=== PATIENT | male | born 1955 | race Caucasian/White ===

== ENCOUNTER → 2025-03-07 10:47 | Outpatient (CLI) | payer MEDICARE, SELFPAY ==
--- NOTE | 2025-03-07 10:52 | DI.CT.S_ITS ---
PROCEDURE: CT KIDNEY URETER BLADDER (KUB) INDICATIONS: 69 y/o M w/ 8mm distal left ureterolith, eval for passage TECHNIQUE: After the administration of oral contrast, 5 mm thick sections acquired from the diaphragms to the symphysis. 5 mm coronal and sagittal reformats were performed. For radiation dose reduction, the following was used: automated exposure control, adjustment of mA and/or kV according to patient size. COMPARISON: Outside Facility, CT, CT ABDOMEN PELVIS W CON, 01/17/2025, 11:50. FINDINGS: Image quality: Diagnostic. Lower Chest: No significant findings. ABDOMEN: Liver: No contour-deforming mass. Gallbladder: Cholelithiasis again seen. Biliary ducts: No biliary dilation. Pancreas: No ductal dilation. Spleen: Size is within normal limits. Adrenal Glands: No adrenal nodules. Kidneys and Ureters: No hydronephrosis. No contour-deforming mass. There is again seen a 8 mm stone in the most distal portion of the left ureter, attenuation values of 1180 Hounsfield units. Stomach and Bowel: Normal colonic caliber, without significant wall thickening. Peritoneum: No abnormal intraperitoneal fluid. No free air. Ventral Wall: No significant hernia. Abdominal Nodes: No retroperitoneal or mesenteric adenopathy by size criteria. Vessels: Aorta and inferior vena cava are normal in size. PELVIS: Pelvic Organs: Unremarkable. Bladder: Unremarkable. Pelvic Nodes: No enlarged lymph nodes. Miscellaneous: No inguinal hernias are seen. Bones: No aggressive osseous abnormality. IMPRESSION: 1. Stable position of the 8 mm stone in the very distal portion of the left ureter, no hydronephrosis seen at this time. 2. No new focal lesion seen. Dictated by: Mono Ruiz M.D. on 03/07/2025 at 15:16 Approved by: Mono Ruiz M.D. on 03/07/2025 at 15:20
== END ==
PROVIDERS: Referring Provider Urology; Visit Provider Urology
DX: N20.1 Calculus of ureter (principal)
CPT/HCPCS: 74176; 99213

== ENCOUNTER 2025-04-13 08:03 | Day surgery (SDC) | payer MEDICARE, SELFPAY ==
[2025-04-05 15:03] VITALS: BMI 28.5
[2025-04-13 08:22] VITALS: BP 174/89; PULSE 82; RESP 16; TEMP 36.5; O2SAT 97; BMI 28.5
[2025-04-13] MEDS: LACTATED RINGERS 1,000 ML 42 ML IV (08:39)
--- NOTE | 2025-04-13 08:44 | PM.HP.IH.1 ---
History of Present Illness History of Present Illness Date Patient Seen: 04/13/25 Time Patient Seen: 08:44 Chief complaint: Cysto/Ureteroscopy/Laser Lithotripsy Narrative: 69 y/o M referred to Urology clinic to discuss management of his newly diagnosed 8mm distal left ureterolith in early March of 2025. Briefly, he does not have a prior history of kidney stones. He developed severe left flank pain with associated nausea and vomiting in mid January of 2025 and presented to [facility] in [place], [place]. This evaluation was notable for a WBC of 11.9, sCr of 1.0, an unremarkable UA and a CT Abd/Pel that demonstrated an 8mm distal left ureterolith with resultant upstream moderate left hydroureteronephrosis and a delayed left nephrogram (do not have access to these images, no report of other uroliths though). He has not had any pain in the interim. He opted for medical expulsion therapy in leiu of surgical management. He had a repeat CT KUB in March of 2025 that was notable for persistence of the aforementioned distal left ureterolith, therefore, he returns today for management via a cystoscopy, left ureteroscopy, laser lithotripsy and left ureteral stent placement. [facility] Medical History Hx of renal calculi Hx of gout Surgical History Hx of circumcision Hx of vasectomy Family History Father Diabetes mellitus Hyperlipidemia Hypertension Other Cancer Social History marital status: household members: significant other Smoking Status: Never smoker alcohol intake: current caffeine: Yes Type(s) of exercise: walking Meds Home Medications and Allergies Home Medications ?Medication ?Instructions ?Recorded ?Confirmed ?Type colchicine 0.6 mg capsule 0.6 mg PO DAILY 01/30/25 04/13/25 History Allergies Allergy/AdvReac Type Severity Reaction Status Date / Time codeine Allergy Verified 04/13/25 08:18 Review of Systems Review of Systems Narrative: CONSTITUTIONAL: Denies weight loss, fevers, chills. HEENT: Denies change in vision, hearing. RESP: Denies SOB, cough. CV: Denies palpations, CP. GI: Denies abdominal pain, nausea, vomiting, diarrhea. : Denies dysuria, hematuria, inability to void. MSK: Denies myalgia, joint pain. SKIN: Denies rash, pruritus. NEURO: Denies headache, syncope. PSYCH: Denies recent change in mood, anxiety, depression. Exam Vital Signs (past 8 hours): - 04/13/25 08:22 Temperature 97.7 F Pulse Rate 82 Respiratory Rate 16 Blood Pressure 174/89 H Pulse Oximetry 97 Narrative Exam Narrative: GEN: Alert and oriented X3. No acute distress. Well-nourished. EYES: PERRLA, EOMI. HENT: Moist mucus membranes, no scleral icterus, normal neck ROM. RESP: Unlabored breathing, equal rise and fall of chest bilaterally, no cyanosis appreciated. CV: No peripheral edema, unremarkable heart rate. ABD: Soft, non-tender, non-distended, no palpable masses. EXT: No edema, clubbing or cyanosis. SKIN: No rashes or lesions. NEURO: No focal neurologic deficits, CN II-XII grossly intact. PSYCH: Cooperative, appropriate mood and affect. Assessment & Plan Assessment and plan (1) Left ureteral calculus: Status: Acute Plan: 69 y/o M w/ an 8mm distal left ureterolith w/ resultant upstream moderate hydroureteronephrosis diagnosed in mid January of 2025. Discussed treatment options to include continued medical expulsion therapy (not recommended as his stone has been present for several months at this point) vs cystoscopy, left ureteroscopy, laser lithotripsy with left ureteral stent placement. Discussed risks of the procedure to include pain, bleeding, infection, injury to urethra/bladder/ureter, inability to access the ureter requiring discussion with Interventional Radiology regarding a possible ureteral stent placement in an antegrade fashion vs a possible nephroureteral stent and/or percutaneous nephrostomy tube, urinary tract infection, inability to remove all of the stone in one setting, need for emergent open repair of bladder and/or ureter, need for multiple ureteroscopic interventions necessary to render the patient stone free. Informed consent was obtained this morning. Time-Based Coding :: [TOTAL MINUTES] spent with patient and on the chart (including review of chart, obtaining history, exam, reviewing outside data, placing orders, documenting exam and treatment plan, and counseling patient) on [DATE]. [employer] Document charge(s): Yes Charge Codes Inpatient/observation care including admit and discharge same day: [id number]
[2025-04-13] MEDS: levoFLOXacin 500 MG/100 ML PIGGYBACK 100 MG IV (09:15)
[2025-04-13] MEDS: ACETAMINOPHEN IV 1,000 MG/100 ML VIAL 400 MG IV (09:16)
--- NOTE | 2025-04-13 09:26 | SUR.OPER ---
Lithotomy on padded OR bed, head on pillow, LEFT ARM secured on padded arm board at <90 degrees abduction. RIGHT ARM PADDED AND TUCKED. Legs secured in padded yellow fins stirrups.
[2025-04-13 10:05] VITALS: BP 135/92; PULSE 74; RESP 16; TEMP 36.2; O2SAT 98
--- NOTE | 2025-04-13 10:06 | SUR.OPER ---
QUANTA LASER: 272UM; LASING TIME 4SEC; TOTAL EMITTED JOULES 3.06 KJ; AVERAGE POWER 12.5W
[2025-04-13 10:10] VITALS: BP 165/83; PULSE 64; RESP 13; O2SAT 97
[2025-04-13 10:15] VITALS: BP 153/74; PULSE 65; RESP 15; O2SAT 99
--- NOTE | 2025-04-13 10:26 | P.OP_ITS ---
Operative Date/Time/Diagnoses Date of procedure: 04/13/25 Time of procedure: 09:20 Pre-op diagnosis: Left ureteral calculus Post-op diagnosis: same Procedure & Clinicians Procedure: Cystoscopy Left retrograde ureteropyelogram Left ureteroscopy, laser lithotripsy Left ureteral stent placement Intraoperative interpretation of fluoroscopic images, total time < 1 hour Same procedure(s) as scheduled: Yes Indications: 69 y/o M w/ an 8mm distal left ureterolith w/ resultant upstream moderate hydroureteronephrosis diagnosed in mid January of 2025. Discussed treatment options to include continued medical expulsion therapy (not recommended as his stone has been present for several months at this point) vs cystoscopy, left ureteroscopy, laser lithotripsy with left ureteral stent placement. Discussed risks of the procedure to include pain, bleeding, infection, injury to urethra/bladder/ureter, inability to access the ureter requiring discussion with Interventional Radiology regarding a possible ureteral stent placement in an antegrade fashion vs a possible nephroureteral stent and/or percutaneous nephrostomy tube, urinary tract infection, inability to remove all of the stone in one setting, need for emergent open repair of bladder and/or ureter, need for multiple ureteroscopic interventions necessary to render the patient stone free. Informed consent was obtained this morning. Surgeon: Pedrito Falcon Click Yes if Unassisted: Yes Anesthesia Type: General Operative Notes Findings: Large left distal ureterolith Specimen(s): other (kidney stone) Applied: none Estimated Blood Loss (mL): 2 Blood products transfused: none Procedure in detail: Patient was identified in the preoperative holding area and consent confirmed. He was then brought to the operating room where general anesthesia was induced.? He was placed in the low lithotomy position. He was then prepped and draped in the usual sterile fashion. A surgical timeout was conducted and all were in agreement. Access to the bladder was obtained via a 30 degree cystoscope.? Complete c ystoscopy was then performed and no concerning bladder masses or lesions were appreciated.? Bilateral ureteral orifices were easily identified and noted to be orthotopic in nature.? The left ureteral orifice was then cannulated using a 0.035 sensor tip ureteral guidewire and a 5Fr ureteral catheter was advanced over the guidewire and into the distal left ureter.? The guidewire was then removed and a retrograde ureteropyelogram was performed which noted a large filling defect in the distal left ureter, consistent with CT findings of a large stone in the area.? The ureteral guidewire was then readvanced through the ureteral catheter and into the left renal pelvis.? The ureteral catheter was then removed and a semirigid ureteroscope was easily advanced into his left ureter alongside the guidewire and to the level of the stone.? A 200 micron laser fiber was then utilized to perform laser lithotripsy.? All stone fragments >1mm in size were removed via the stone basket and sent for chemical analysis.? The ureter was then directly visualized upon removal of the ureteroscope and noted to be stone free.? A 6Fr multi-length JJ ureteral stent with string was then advanced over the ureteral guidewire.? Upon removal of the guidewire, a good curl was noted in the left renal pelvis and the bladder using fluoroscopy.? The bladder was then drained.? Anesthesia was reversed, he was extubated in the OR and transferred to the PACU in stable condition for recovery. Complications: none Post-operative Condition: stable Disposition: PACU Plan for aftercare: Discharge home from PACU. Will return to Urology clinic in 3 months for a RBUS and stone analysis review.
--- NOTE | 2025-04-13 10:28 | DI.RAD.S_ITS ---
PROCEDURE: XR ABDOMEN 1V INDICATIONS: STENT PLACEMENT TECHNIQUE: 2 intra-operative images acquired by the Urology service. COMPARISON: None. FINDINGS: Partial opacification of the left renal collecting system with a normally positioned double-J ureteral stent. Partial opacification of the urinary bladder. IMPRESSION: Normally positioned left oval J ureteral stent with partial opacification of the renal collecting system and urinary bladder. Dictated by: Liang Rodrigues M.D. on 04/15/2025 at 17:43 Approved by: Liang Rodrigues M.D. on 04/15/2025 at 17:44
[2025-04-13 10:30] VITALS: BP 155/84; PULSE 67; RESP 16; O2SAT 99
== END 2025-04-13 10:55 | disposition home or self-care (01) ==
PROVIDERS: PCP Naturopath; Referring Provider Urology; Visit Provider Urology
PROC: 0TF78ZZ Fragmentation in Left Ureter, Via Natural or Artificial Opening Endoscopic (ICD-10-PCS; CPT 52353; principal; 2025-04-13 09:15)
DX: N20.1 Calculus of ureter (principal)
CPT/HCPCS: 52356; 74018; 76000; 82365; C2617; J0131; J1100; J1956; J2405; J2704; J3010; Q9967